=== PATIENT | male | born 1945 | race Caucasian/White ===

== ENCOUNTER → 2016-03-08 | Outpatient (CLI) | payer OTHER ==
[~2016-03-08] MED LIST: ALPR1TAB3 PO; ASPI81TA28 PO; ATOR-22 PO; CYAN10005 PO; DOCU-94 PO; METO25TA56 PO; OMEG10007 PO; SERT50TA PO; TAMS0.4C38 PO; TIOTCAP INH
[2016-03-08 14:18] VITALS: BP 185/96; PULSE 68; TEMP 36.8; O2SAT 95
--- NOTE | 2016-03-08 15:10 | Radiation Oncology Follow-Up ---
Radiation Oncology Follow-Up Date of Visit Mar 08, 2016. Reason For Visit Patient is seen today for his regular scheduled 6 month follow-up visit following his prostate seed implant as monotherapy. Radiation Completion Date Seed Implants 08/04/15 History of Present Illness Mr. Layton is a 69-year-old male without a family history of prostate cancer. He is been followed with serial screening prostate-specific antigens. His most recent prostate-specific antigen was 5.06 performed on 07/21/2014. Because of this rise in prostate-specific antigen the patient was sent for evaluation to Dr. Tod Chappell. His digital rectal exam revealed no evidence of nodularity. He discussed the options and the patient agreed to proceed with a prostate biopsy. His estimated prostate volume was 40 g. On 09/11/2014 the patient underwent ultrasound-guided biopsies. 3 biopsies were taken from the left and right base. 3 biopsies were taken from the left and right mid gland. 3 biopsies were taken from the left and right apex. One biopsy was taken for the left and right anterior gland. The 3 biopsies from the right base, left apex, right apex and the one biopsy from the left and right anterior gland were all benign. 2 of 3 biopsies from the left base revealed adenocarcinoma Gabriela grade of 3+3 involving less than 10% of the core sample. 3 of 3 biopsies in the left mid gland revealed an adenocarcinoma Gabriela grade 3+3 involving left than 10% of the core sample. No perineural invasion was identified. The biopsies from the right base revealed benign prostatic tissues with mild acute and chronic inflammation. Case: [id number]. Therefore total of 5 out of 14 biopsies were taken. The patient's estimated prostate volume was 34.8 g with a prostate-specific antigen density of 0.145. The patient initially decided for active surveillance and continued on this tract until his follow-up with Dr. Chappell on 05/04/2015. At that meeting the patient expressed an interest in prostate seed implant as definitive therapy. Dr. Chappell was kind enough to ask us to see this patient for evaluation and discussion of the treatment options. It is for this reason the patient is seen in referral. His options were reviewed with him. Ultimately his decision was to proceed with a prostate seed implant as monotherapy. The patient went on to have a prostate seed implant as monotherapy on 08/04/2015 receiving a dose of 115 Gy with 82 seeds placed. Patient was seen in follow-up on 09/03/2015. He's been doing well over this past month. He is noted some increasing urinary symptoms. He completed AUA score sheet and gave a score of 9. His initial AUA score was 11. He does continue on tamsulosin. He completed expanded prostate cancer index composite for clinical practice and gave a score of 0 of 12 and urinary incontinence symptoms. He gave a score of 4 of 12 and urinary irritation symptoms. He gave a score of 7 of 12 and bowel symptoms. He gave a score of 9 of 12 in sexual symptoms. He gave a score of 2 of 12 and hormonal vitality symptoms. His total was 22 of 60. These were in regards to symptoms over the past 4 weeks. He stated that the bowel symptoms over the past week have greatly improved. He did see Dr. Chappell in follow-up and had a postvoiding residual. He stated that there was no problems with a post void evaluation. Interim History Since his last follow-up visit on 09/03/2015 the patient has been doing fairly well. He saw Dr. Chappell on January 17. At that time he complained of a painful nodule in his lower abdominal wall. He was sent across the street to see a surgeon. He apparently lanced the area with pus drained. This is since healed. The patient continues to have excellent urination. His AUA is a 7. He does note some persistent urgency. He also completed the EPIC-CP and received an overall prostate cancer quality of life score of 16 out of 60. 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 The patient underwent a digital rectal exam at the time of his visit with Dr. Chappell. This was unremarkable. Allergies Coded Allergies: Horse Serum Proteins (Unverified Allergy, Unknown, AFFECTED NERVOUS SYSTEM ,DEPRESSION, 07/23/15) NO KNOWN DRUG ALLERGIES (Unverified Allergy, Unknown, NONE, 07/23/15) Home Medications Scheduled Aspirin (Aspirin Ec), 81 MG PO HS Atorvastatin (Lipitor), 1 TAB PO HS Cyanocobalamin (Vitamin B-12), 1,000 MCG PO QAM Docusate Sodium (Colace), 1 CAP PO DAILY Fish Oil (Abbott-3), 1 CAP PO QAM Metoprolol Tartrate (Lopressor) (Lopressor), 25 MG PO BID Sertraline (Zoloft), 50 TAB PO QAM Tamsulosin Hcl (Flomax), 0.4 MG PO QPM Tiotropium [place] (Spiriva Handihaler), 1 CAP INH QAM Scheduled PRN Alprazolam (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), 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 This was 1.26. This showed a good response from his presenting prostate-specific antigen pre-implant of 5.06. Assessment & Plan Mr. Layton continues to do extremely well following his implant as monotherapy for his low-grade prostate cancer. His urination and bowels continue to be excellent. His most recent prostate-specific antigen shows a good response. He will continue to be followed with repeat prostate-specific antigens as scheduled by Dr. Chappell. He is scheduled to see Dr. Chappell in 4-6 months. We would like to see him for follow-up in one year and continue seeing him on a yearly basis alternating with Dr. Chappell's appointments. Total Time In Follow-Up I spent 15 minutes in discussion and review of his chart and in preparation of this document. Copy To Eagle Peralta M.D.; Tod Chappell MD
== END | disposition home or self-care (01) ==
LOC: C.ONC 13:47
PROVIDERS: ATTEND Radiology Radiation Oncology
DX: Z08 Encounter for follow-up examination after completed treatment for malignant neoplasm (principal); Z92.3 Personal history of irradiation; Z85.46 Personal history of malignant neoplasm of prostate

== ENCOUNTER → 2017-03-08 | Outpatient (CLI) | payer OTHER ==
[~2017-03-08] MED LIST changes: +CALC-279 PO; +CALC600T PO; +ERGO500037 PO; +LOSA1TAB PO
[2017-03-08 14:13] VITALS: BP 158/81; PULSE 56; TEMP 36.4; O2SAT 96
--- NOTE | 2017-03-08 17:14 | Radiation Oncology Follow-Up ---
Radiation Oncology Follow-Up Date of Visit Mar 08, 2017. Reason For Visit Annual follow-up Radiation Completion Date 08/04/15 Prostate seed implant as monotherapy Diagnosis (1) Prostate cancer Status: Resolved Onset Date: 09/11/2014 Location: left lobe of the prostate Histology Subtype: adenocarcinoma Stage: ll Permanent Comment: Rising PSA, pretreatment PSA 5.06 Status post ultrasound-guided biopsies biopsy stage T2b Gabriela 3+3 Prostate volume 34.8 Prostate density 0.145 Status post prostate seed implant as monotherapy 08/04/2015 received 115 Gy, 82 seeds were placed. Last Edited By: Nirmala Guido on Aug 31, 2015 13:33 History of Present Illness Mr. Layton is without a family history of prostate cancer. He is been followed with serial screening prostate-specific antigens. His most recent prostate- specific antigen was 5.06 performed on 07/21/2014. Because of this rise in prostate-specific antigen the patient was sent for evaluation to Dr. Tod Chappell. His digital rectal exam revealed no evidence of nodularity. He discussed the options and the patient agreed to proceed with a prostate biopsy. His estimated prostate volume was 40 g. On 09/11/2014 the patient underwent ultrasound-guided biopsies. 3 biopsies were taken from the left and right base. 3 biopsies were taken from the left and right mid gland. 3 biopsies were taken from the left and right apex. One biopsy was taken for the left and right anterior gland. The 3 biopsies from the right base, left apex, right apex and the one biopsy from the left and right anterior gland were all benign. 2 of 3 biopsies from the left base revealed adenocarcinoma Gabriela grade of 3+ 3 involving less than 10% of the core sample. 3 of 3 biopsies in the left mid gland revealed an adenocarcinoma Boomer grade 3+3 involving left than 10% of the core sample. No perineural invasion was identified. The biopsies from the right base revealed benign prostatic tissues with mild acute and chronic inflammation. Case: [id number]. Therefore total of 5 out of 14 biopsies were taken. The patient's estimated prostate volume was 34.8 g with a prostate- specific antigen density of 0.145. The patient initially decided for active surveillance and continued on this tract until his follow-up with Dr. Chappell on 05/04/2015. At that meeting the patient expressed an interest in prostate seed implant as definitive therapy. Dr. Chappell was kind enough to ask us to see this patient for evaluation and discussion of the treatment options. It is for this reason the patient is seen in referral. His options were reviewed with him. Ultimately his decision was to proceed with a prostate seed implant as monotherapy. The patient went on to have a prostate seed implant as monotherapy on 08/04/2015 receiving a dose of 115 Gy with 82 seeds placed. Patient was seen in follow-up on 09/03/2015. He's been doing well over this past month. He is noted some increasing urinary symptoms. He completed AUA score sheet and gave a score of 9. His initial AUA score was 11. He does continue on tamsulosin. He completed expanded prostate cancer index composite for clinical practice and gave a score of 0 of 12 and urinary incontinence symptoms. He gave a score of 4 of 12 and urinary irritation symptoms. He gave a score of 7 of 12 and bowel symptoms. He gave a score of 9 of 12 in sexual symptoms. He gave a score of 2 of 12 and hormonal vitality symptoms. His total was 22 of 60. These were in regards to symptoms over the past 4 weeks. He stated that the bowel symptoms over the past week have greatly improved. He did see Dr. Chappell in follow-up and had a postvoiding residual. He stated that there was no problems with a post void evaluation. Interim History He is been doing well over this past year. Score of 5. He completed expanded prostate cancer index composite for clinical practice and gave a score of 0 of 12 and urinary incontinence symptoms. He gave a score of 3 of 12 and urinary irritation symptoms. He gave a score of 0 12 in bowel symptoms. He gave a score of 12 of 12 and sexual symptoms. He was score of 3 of 12 and hormonal vitality symptoms. His total was 18 of 60. He had a recheck PSA 01/14/2016 that was 1.26. He had a PSA 08/18/2016 that was 0.88. He is not on any medication to help with urination. Previously was on Flomax and he was able to discontinue the medication. He has some urgency and feels this occurs mostly at night. During the day he does not notice the urgency. Allergies Coded Allergies: Horse Serum Proteins (Unverified Allergy, Unknown, AFFECTED NERVOUS SYSTEM ,DEPRESSION, 07/23/15) NO KNOWN DRUG ALLERGIES (Unverified Allergy, Unknown, NONE, 07/23/15) Home Medications Scheduled Aspirin (Aspirin Ec), 81 MG PO HS Calcium Citrate-Vitamin D (Calcium Citrate + D), 1 TAB PO DAILY Cyanocobalamin (Vitamin B-12), 1,000 MCG PO QAM Ergocalciferol (Vitamin D 59228 Unit), 1 CAP PO WK Fish Oil (Barre-3), 1 CAP PO QAM Losartan Potassium (Cozaar), 1 TAB PO DAILY Metoprolol Tartrate (Lopressor) (Lopressor), 25 MG PO BID Sertraline (Zoloft), 50 TAB PO QAM Tiotropium [place] (Spiriva Handihaler), 1 CAP INH QAM Scheduled PRN Alprazolam (Xanax), 1 MG PO TID 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 of Systems Gastrointestinal: Symptoms: WNL GI Comments: No fiber supplements; Oral: Symptoms: No Problems Respiratory: Symptoms: SOB With Exertion Other Respiratory: SOB w/exertion is age related - not a concern Urinary: Comments: Doesn't ignore urge to void;1 void/night; Skin: Symptoms: No Problems Physical Exam Vital Signs Date Time Temp Pulse Resp B/P (MAP) Pulse Ox O2 Delivery O2 Flow Rate FiO2 03/08/17 14:13 36.4 56 16 158/81 96 Fatigue: None General Appearance: no apparent distress Eyes: normal inspection, EOMI ENT: normal ENT inspection, hearing grossly normal Respiratory/Chest: lungs clear, no respiratory distress, no accessory muscle use Cardiovascular: regular rate, rhythm, no gallop, no murmur Abdomen: non tender, soft Extremities: no pedal edema Neurologic/Psychiatric: no motor/sensory deficits, alert, normal mood/affect Skin: warm/dry Pain Management Patient Reports Pain: No Pain Management Plan He denies pain therefore requires no pain management. Laboratory Laboratory Results: were reviewed Laboratory Comments: PSAs were reviewed in the interim history. Pathology Pathology Results: not applicable Imaging Imaging Studies: not applicable Assessment & Plan Plan: A PSA was drawn today prior to examination. He'll be notified as to the results. Continue follow-up with Dr. Chappell he'll be seeing him in 6 months. We asked him to return to our office in 1 year. He may call our office if he has any questions or concerns in the interim. We'll defer the erectile dysfunction to Dr. Chappell or his primary care physician. Total Time In Follow-Up I spent 20 minutes speaking to the patient performing examination. I spent 15 minutes reviewing information and completing this note. Copy To Eagle Peralta M.D.; Tod Chappell MD
== END | disposition home or self-care (01) ==
LOC: C.ONC 13:52
PROVIDERS: ATTEND Physician Assistant Medical
DX: Z08 Encounter for follow-up examination after completed treatment for malignant neoplasm (principal); Z92.3 Personal history of irradiation; Z85.46 Personal history of malignant neoplasm of prostate